=== PATIENT | male | born 1990 | race Caucasian/White ===

== ENCOUNTER 2020-06-08 16:55 | Outpatient (REF) | payer OTHER, SELFPAY ==
[2020-06-10 10:58] LABS: COVID-19 RT-PCR UVMMC Result Negative (Negative)
== END 2020-06-08 16:56 | disposition home or self-care (01) ==
LOC: NCHCN 16:55
PROVIDERS: Visit Provider Family Medicine
DX: Z20.822 Contact with and (suspected) exposure to COVID-19 (principal); J02.9 Acute pharyngitis, unspecified
CPT/HCPCS: U0003

== ENCOUNTER 2021-12-11 15:15 | Outpatient (REF) | payer OTHER, SELFPAY ==
[2021-12-11 15:23] LABS: HCT 42.4 % (40.0-50.0); HGB 14.5 g/dL (13.5-17.5); MCHC 34.2 % (32.0-36.0); MCV 94 fL (80-95); MPV 13.3 fL (8.0-11.0); Platelet Count 138 10^3/uL (130-400); RBC 4.53 10^6/uL (4.36-5.78); RDW 11.7 % (11.8-14.1); WBC 5.72 10^3/uL (4.4-10.8)
[2021-12-11 16:02] LABS: ALT 25 U/L (16-63); AST 21 U/L (15-37); Albumin 4.3 g/dL (3.4-5.0); Alkaline Phosphatase 62 U/L (46-116); Anion Gap 7.1 mmol/L (3-11); BUN 23 mg/dL (7-18); Bilirubin, Total 0.8 mg/dL (0.2-1.0); CO2 27.9 mmol/L (21.0-32.0); CREATININE 0.9 mg/dL (0.70-1.30); Chloride 106 mmol/L (98-107); Glucose 92 mg/dL (74-106); Potassium 4.1 mmol/L (3.5-5.1); Sodium 141 mmol/L (136-145); TSH (W/Ref FT4) 0.83 uIU/mL (0.36-3.74)
== END 2021-12-11 15:16 | disposition home or self-care (01) ==
LOC: NCHCN 15:15
PROVIDERS: Visit Provider Family Medicine
DX: R07.89 Other chest pain (principal)
CPT/HCPCS: 80053; 85027; 84443